=== PATIENT | male | born 1995 | race Two or more races ===

== ENCOUNTER 2018-01-07 20:03 | Emergency (ER) | payer SELFPAY ==
[~2018-01-07] VITALS: Ht 177.8 cm; Wt 81.6 kg
[2018-01-07 20:55] LABS: Basophils # (auto) 0 uL; Basophils % (auto) 0.7 % (0.0-2.0); Eosinophils # (auto) 0.3 uL; Eosinophils % (auto) 4.3 % (0.0-7.0); Hematocrit 50.3 % (41.0-53.0); Hemoglobin 17.2 g/dL (13.5-17.5); Lymphocytes # (auto) 1.5 uL; Lymphocytes % (auto) 25.6 % (10.0-50.0); Mean Corpuscular Hemoglobin 30.7 pg (28.0-32.0); Mean Corpuscular Hgb Conc. 34.3 g/dL (32.0-36.0); Mean Corpuscular Volume 89.5 fL (80.0-100.0); Monocytes # (auto) 0.6 uL; Monocytes % (auto) 9.9 % (0.0-12.0); Neutrophils # (auto) 3.5 uL; Neutrophils % (auto) 59.5 % (37.0-80.0); Nucleated Red Blood Cells % 0.1 %; Platelet Count (auto) 209 10^3/uL (140-450); Red Blood Cells 5.62 10^6/uL (4.5-5.90); Red Cell Distribution Width 13.3 % (11.8-14.3); White Blood Cell 5.9 10^3/uL (4.4-10.8)
[2018-01-07 21:14] LABS: Albumin 4.2 g/dL (3.4-5.0); BUN/Creatinine Ratio 15.7; Potassium 3.9 mmol/L (3.5-5.1)
[2018-01-07 21:17] LABS: Bilirubin, Total 1.7 mg/dL (0.2-1.0); Total Protein 7.7 g/dL (6.4-8.2)
[2018-01-08 03:33] VITALS: BP 131/94
[2018-01-08] MEDS ORDERED: ALUM & MAG HYDROX-SIMETH LIQ(MAALOX) 30 ML PO ONE (04:15)
[2018-01-08] MEDS ORDERED: LIDOCAINE VISCOUS 2% 15ML UD MT ONE (04:15)
== END 2018-01-08 04:55 | disposition home or self-care (01) ==
LOC: ER 20:03
DX: H61.23 Impacted cerumen, bilateral (principal)
CPT/HCPCS: 36415; 80053; 85025